=== PATIENT | male | born 1945 | race Caucasian/White ===

== ENCOUNTER 2016-10-23 00:10 | Emergency (ER) | payer OTHER ==
[~2016-10-23] VITALS: Ht 190.5 cm; Wt 85.5 kg
[~2016-10-23 00:10] MED LIST: FLEXERIL10 MG PO; VICODIN,LORT1 TABLET PO
[2016-10-23 01:51] LABS: HEMATOCRIT 36.1 % (38.0-50.0); MCH 30.4 PG (29.0-34.0); MCHC 34.9 G/DL (30.0-36.0); MCV 87.2 FL (86-99); MEAN PLAT.VOLUME 10.5 uM^3 (9.0-12.4); PLATELET COUNT 217 K/uL (156-360); RBC DIS.WIDTH-CV 12.8 % (11.8-14.6); RBC DIS.WIDTH-SD 40.6 % (39-53); RED BLOOD COUNT 4.14 M/uL (4.00-5.50); WHITE BLOOD COUNT 11.9 K/uL (4.1-10.2)
[2016-10-23 02:03] LABS: CHLORIDE 97 mEq/L (99-109); POTASSIUM 4.1 mEq/L (3.7-5.4); SODIUM 130 mEq/L (136-147)
[2016-10-23 02:05] LABS: GLUCOSE 173 mg/dL (70-99)
[2016-10-23 02:06] LABS: ANION GAP 10 MEQ/L (2-14)
[2016-10-23 02:07] LABS: TOTAL BILIRUBIN 0.6 mg/dL (0.0-1.0)
[2016-10-23 02:08] LABS: ALKALINE PHOSPHATASE 78 IU/L (3-129)
[2016-10-23 02:09] LABS: GFR ESTIMATE (CALCULATED) > 59 mL/min/
[2016-10-23 02:10] LABS: UREA NITROGEN (BUN) 11 mg/dL (9-23)
[2016-10-23] MEDS ORDERED: KEFLEX500 MG PO (02:39)
[2016-10-23] MEDS ORDERED: BACTRIM,SEPT1 TABLET PO (02:39)
[2016-10-23 03:17] VITALS: BP 142/72
== END 2016-10-23 03:18 | disposition home or self-care (01) ==
LOC: EXP 00:10 → EME 00:10 → EXP 03:18
PROVIDERS: Physician Assistant
DX: E11.621 Type 2 diabetes mellitus with foot ulcer (principal); L97.529 Non-pressure chronic ulcer of other part of left foot with unspecified severity; E11.628 Type 2 diabetes mellitus with other skin complications; L03.032 Cellulitis of left toe; Z79.84 Long term (current) use of oral hypoglycemic drugs; F17.200 Nicotine dependence, unspecified, uncomplicated
CPT/HCPCS: 73630; 80053; 85027; 99281; 99284

== ENCOUNTER 2016-10-25 09:01 | Inpatient (IN) | payer OTHER ==
[~2016-10-25] VITALS: Ht 190.5 cm; Wt 83.9 kg
[~2016-10-25 09:01] MED LIST changes: +BACTRIM,SEPT1 TABLET PO; +KEFLEX500 MG PO
[2016-10-25 10:06] LABS: HEMATOCRIT 39.7 % (38.0-50.0); MCH 30.7 PG (29.0-34.0); MCHC 34.8 G/DL (30.0-36.0); MCV 88.2 FL (86-99); MEAN PLAT.VOLUME 11.5 uM^3 (9.0-12.4); PLATELET COUNT 191 K/uL (156-360); RBC DIS.WIDTH-CV 12.9 % (11.8-14.6); RBC DIS.WIDTH-SD 41.8 % (39-53); WHITE BLOOD COUNT 11.6 K/uL (4.1-10.2)
[2016-10-25 10:15] LABS: CHLORIDE 95 mEq/L (99-109); POTASSIUM 4.4 mEq/L (3.7-5.4); SODIUM 130 mEq/L (136-147)
[2016-10-25 10:16] LABS: GLUCOSE 176 mg/dL (70-99)
[2016-10-25 10:18] LABS: ANION GAP 11 MEQ/L (2-14)
[2016-10-25 10:20] LABS: GFR ESTIMATE (CALCULATED) > 59 mL/min/
[2016-10-25 10:21] LABS: UREA NITROGEN (BUN) 14 mg/dL (9-23)
[2016-10-25] MEDS ORDERED: KEFLEX500 MG PO (11:23)
[2016-10-25] MEDS ORDERED: GLUCOPHAGE1000 MG PO (11:24)
[2016-10-25] MEDS ORDERED: BACTRIM,SEPT1 TABLET PO (11:24)
[2016-10-25] MEDS ORDERED: PRINIVIL10 MG PO (11:24)
[2016-10-25 12:21] LABS: Estimated Average Glucose 171 mg/dL (70-123); HEMOGLOBIN A1c (GLYCOHEMOGLOB) 7.6 % HGB (Below 5.7)
[2016-10-25 12:24] VITALS: BP 140/71
[2016-10-25 16:00] VITALS: BP 153/73
[2016-10-25 20:31] VITALS: BP 118/62
[2016-10-25 22:37] LABS: POINT-OF-CARE METER ID UU14149397
[2016-10-25 23:46] VITALS: BP 134/66
[2016-10-26 05:13] VITALS: BP 127/65
[2016-10-26 06:27] LABS: POINT-OF-CARE METER ID UU14149397
[2016-10-26 07:10] VITALS: BP 116/59
[2016-10-26 08:36] LABS: ANION GAP 7 MEQ/L (2-14); CHLORIDE 98 MEQ/L (99-109); GFR ESTIMATE (CALCULATED) > 59 mL/min/; GLUCOSE 163 mg/dL (70-99); SAMPLE HEMOLYSIS CHECK 0; SAMPLE ICTERIC CHECK 0; SAMPLE LIPEMIA CHECK 0; SODIUM 129 MEQ/L (136-147); UREA NITROGEN (BUN) 10 mg/dL (9-23)
[2016-10-26 08:41] LABS: HEMATOCRIT 32.5 % (38.0-50.0); MCH 30.9 PG (29.0-34.0); MCHC 34.5 G/DL (30.0-36.0); MCV 89.5 FL (86-99); MEAN PLAT.VOLUME 11.6 uM^3 (9.0-12.4); PLATELET COUNT 173 K/uL (156-360); RBC DIS.WIDTH-CV 12.9 % (11.8-14.6); RBC DIS.WIDTH-SD 42.7 % (39-53); RED BLOOD COUNT 3.63 M/uL (4.00-5.50); WHITE BLOOD COUNT 9.1 K/uL (4.1-10.2)
[2016-10-26 15:35] VITALS: BP 133/70
[2016-10-26 22:31] LABS: POINT-OF-CARE METER ID UU14188577
[2016-10-27 00:12] VITALS: BP 139/72
[2016-10-27 06:58] LABS: EOSINOPHIL (%) 0.1 % (0-5); HEMATOCRIT 31.9 % (38.0-50.0); IMMATURE GRANULOCYTE (%) 0.5 % (0.0-0.7); IMMATURE GRANULOCYTE COUNT 0.1 K/uL; INSTRUMENT ABS NEUTROPHIL CT 12.1 K/uL; LYMPHOCYTE COUNT 1.3 K/uL (1.0-2.8); MCH 30.6 PG (29.0-34.0); MCHC 34.5 G/DL (30.0-36.0); MCV 88.6 FL (86-99); MEAN PLAT.VOLUME 11.1 uM^3 (9.0-12.4); MONOCYTE (%) 8.2 % (3-12); MONOCYTE COUNT 1.2 K/uL (0-0.8); NEUTROPHIL (%) 82.2 % (45-76); NEUTROPHIL COUNT 12.1 K/uL (1.8-6.4); PLATELET COUNT 218 K/uL (156-360); RBC DIS.WIDTH-CV 12.9 % (11.8-14.6)
[2016-10-27 07:00] LABS: WHITE BLOOD COUNT 14.7 K/uL (4.1-10.2)
[2016-10-27 07:20] LABS: ANION GAP 10 MEQ/L (2-14); CHLORIDE 100 MEQ/L (99-109); GFR ESTIMATE (CALCULATED) > 59 mL/min/; GLUCOSE 155 mg/dL (70-99); POTASSIUM 3.4 MEQ/L (3.7-5.4); SAMPLE HEMOLYSIS CHECK 0; SAMPLE ICTERIC CHECK 0; SAMPLE LIPEMIA CHECK 0; SODIUM 133 MEQ/L (136-147); UREA NITROGEN (BUN) 15 mg/dL (9-23)
[2016-10-27 07:39] LABS: POINT-OF-CARE METER ID UU14149397
[2016-10-27 08:00] VITALS: BP 121/65
[2016-10-27 11:00] LABS: FERRITIN 414 NG/ML (22-322)
[2016-10-27 11:56] LABS: POINT-OF-CARE METER ID UU14149397
[2016-10-27 15:45] VITALS: BP 100/55
[2016-10-27 16:47] LABS: POINT-OF-CARE METER ID UU14149397
[2016-10-28] VITALS: BP 134/69
[2016-10-28 06:40] LABS: EOSINOPHIL (%) 0.5 % (0-5); EOSINOPHIL COUNT 0.1 K/uL (0-0.3); HEMATOCRIT 32.8 % (38.0-50.0); IMMATURE GRANULOCYTE (%) 0.6 % (0.0-0.7); IMMATURE GRANULOCYTE COUNT 0.1 K/uL; INSTRUMENT ABS NEUTROPHIL CT 10.4 K/uL; LYMPHOCYTE COUNT 1.5 K/uL (1.0-2.8); MCH 30.1 PG (29.0-34.0); MCHC 33.8 G/DL (30.0-36.0); MCV 88.9 FL (86-99); MEAN PLAT.VOLUME 10.7 uM^3 (9.0-12.4); NEUTROPHIL (%) 79.6 % (45-76); NEUTROPHIL COUNT 10.4 K/uL (1.8-6.4); PLATELET COUNT 225 K/uL (156-360); RBC DIS.WIDTH-SD 42.5 % (39-53); RED BLOOD COUNT 3.69 M/uL (4.00-5.50)
[2016-10-28 06:58] LABS: POINT-OF-CARE METER ID UU14149397
[2016-10-28 07:50] VITALS: BP 128/59
[2016-10-28 07:53] LABS: ANION GAP 11 MEQ/L (2-14); CHLORIDE 102 MEQ/L (99-109); GFR ESTIMATE (CALCULATED) > 59 mL/min/; GLUCOSE 140 mg/dL (70-99); POTASSIUM 3.7 MEQ/L (3.7-5.4); SAMPLE HEMOLYSIS CHECK 0; SAMPLE ICTERIC CHECK 0; SAMPLE LIPEMIA CHECK 0; SODIUM 136 MEQ/L (136-147); UREA NITROGEN (BUN) 17 mg/dL (9-23)
[2016-10-28 11:28] LABS: POINT-OF-CARE METER ID UU14149397
[2016-10-28 16:38] LABS: POINT-OF-CARE METER ID UU14149397
[2016-10-28 16:48] VITALS: BP 185/73
[2016-10-28 23:56] VITALS: BP 137/66
[2016-10-29 07:56] VITALS: BP 141/67
[2016-10-29] MEDS ORDERED: ROCEPHIN2 GM/50 ML IV (11:03)
[2016-10-29 15:40] VITALS: BP 138/70
== END 2016-10-29 18:47 | disposition home or self-care (01) | DRG 988 ==
LOC: EME 09:01 → 3EAST 10:52 → EDOF 10:52 → 3EAST 11:54
PROVIDERS: Internal Medicine; Nurse Practitioner Family
PROC: 0J9R0ZZ Drainage of Left Foot Subcutaneous Tissue and Fascia, Open Approach (ICD-10-PCS; principal; 2016-10-25)
DX: E11.621 Type 2 diabetes mellitus with foot ulcer (principal); M86.172 Other acute osteomyelitis, left ankle and foot; L03.116 Cellulitis of left lower limb; L02.612 Cutaneous abscess of left foot; E87.1 Hypo-osmolality and hyponatremia; L97.524 Non-pressure chronic ulcer of other part of left foot with necrosis of bone; I10 Essential (primary) hypertension; Z91.14 Patient's other noncompliance with medication regimen; F17.210 Nicotine dependence, cigarettes, uncomplicated; E11.42 Type 2 diabetes mellitus with diabetic polyneuropathy; L03.032 Cellulitis of left toe; E11.65 Type 2 diabetes mellitus with hyperglycemia; D64.9 Anemia, unspecified; Z60.2 Problems related to living alone; Z79.84 Long term (current) use of oral hypoglycemic drugs
CPT/HCPCS: 73630; 73720; 76937; 80048; 82728; 82948; 83036; 83605; 84466; 85025; 85027; 87040; 87070; 87075; 87205; 99281; 99285; J0696; J1650; J1815; J2543; J3370; J7030; J7050; S0032